=== PATIENT | female | born 1975 | race Caucasian/White ===

== ENCOUNTER 2021-07-20 18:35 | Emergency (ER) | payer OTHER, SELFPAY ==
[2021-07-20 20:29] VITALS: BP 179/91; PULSE 123; RESP 22; TEMP 39.3; O2SAT 96; BMI 46.7
[2021-07-20 20:49] LABS: COVID-19 Test Positive (Negative)
--- NOTE | 2021-07-20 20:49 | ECG_ITS ---
Test Reason : TACHY Blood Pressure : / mmHG Vent. Rate : 123 BPM Atrial Rate : 123 BPM P-R Int : 154 ms QRS Dur : 084 ms QT Int : 306 ms P-R-T Axes : 041 010 033 degrees QTc Int : 438 ms Sinus tachycardia Cannot rule out Anterior infarct , age undetermined Abnormal ECG No previous ECGs available Referred By: Chana Jacobs Electronically Signed By:Chencho Costello
[2021-07-20] MEDS: Acetaminophen 325 MG TABLET 975 MG PO (21:35)
[2021-07-20] MEDS: Ibuprofen 400 MG TABLET PO (21:35)
[2021-07-20 22:46] VITALS: BP 141/85; PULSE 111; RESP 25; TEMP 37.3; O2SAT 95
--- NOTE | 2021-07-20 22:49 | ED.GENADULT ---
HPI - General Adult General Chief complaint: General Medical Stated complaint: fevers, chill, cough Time Seen by Provider: 07/20/21 21:12 Source: patient Mode of arrival: ambulatory History of Present Illness HPI narrative: 46-year-old female who is vaccinated with COVID-19 vaccine and presents with complaints of shortness of breath with chest tightness when she coughs and reports subjective fever as well as chills with body aches. Related Data Allergies Allergy/AdvReac Type Severity Reaction Status Date / Time No Known Allergies Allergy Verified 07/20/21 20:33 Review of Systems Review of Systems: Pertinent positives and negatives as stated in HPI and 10 point review of systems is otherwise negative. PMFSH Past Medical History Source: nursing notes reviewed Social History Social History Advance Directives: No Advance Directives Information Provided: Yes Patient : No Physical Exam Vital Signs: Vital Signs: Last Vital Signs Temp 99.1 F 07/20/21 22:46 Pulse 111 H 07/20/21 22:46 Resp 25 H 07/20/21 22:46 BP 141/85 H 07/20/21 22:46 Pulse Ox 95 07/20/21 22:46 BMI result Body Mass Index 46.7 VITAL SIGNS: Reviewed. GENERAL: Well developed, well nourished, in no acute distress. HEAD: Normocephalic/atraumatic EYES: PERRLA, EOMI LUNGS: No audible wheeze noted, patient speaking in full sentences, mild tachypnea. SpO2<95> CARDIOVASCULAR: Sinus tachycardia and rhythm without noted murmurs, no JVD or lower extremity edema. ABDOMEN: Soft, non-tender, non-distended with bowel sounds. SKIN: Inspection of the skin reveals no rashes, tactile fever NEUROLOGIC: Alert and oriented x 4. Strength and sensation to light touch were grossly intact x 4. Course Course Course Narrative: 46-year-old female with history and clinical presentation consistent with viral syndrome and on review of all investigations is noted be COVID-19 positive. All results discussed with patient at bedside, she was treated with combination analgesics and on re-evaluation is had complete resolution her fever and significant improvement in her heart rate after the fever reduction. Patient states she feels mildly better. Medical Decision Making Lab Data Labs: Lab Results 12/23/21 Range/Units 20:35 COVID-19 ([facility]) Positive A (Negative) COVID-19 Clin Com See Note Discharge Plan Discharge Clinical Impression: Viral syndrome, Lab test positive for detection of COVID-19 virus Patient Disposition: Home, Self-Care Instructions: Viral Syndrome (ED), COVID-19 (Coronavirus Disease 2019) (ED) Additional Instructions: 1. Resume all home medications as prescribed. 2. Recommend bedside cool mist humidifier, increase water intake, recommend [id number] Tylenol/ibuprofen as needed for body aches and temperatures greater than 100.4. 3. Follow-up with your primary care provider in the next 2-3 days via telemedicine appointment for re-evaluation. 4. Follow all state, Federal guidelines for isolation as it relates to COVID 19 infection. Return to the ER for acute worsening of symptoms.
== END 2021-07-20 23:26 | disposition home or self-care (01) ==
PROVIDERS: Emergency Provider Student in an Organized Health Care Education/Training Program
DX: U07.1 COVID-19 (principal); B34.9 Viral infection, unspecified
CPT/HCPCS: 36415; 87635; 93005; 99283